=== PATIENT | female | born 1990 | race Caucasian/White ===

== ENCOUNTER 2018-06-08 21:30 | Emergency (ER) | payer OTHER, SELFPAY ==
[2018-06-08 21:37] VITALS: BP 121/77; PULSE 81; RESP 21; TEMP 37; O2SAT 99; BMI 40.6
--- NOTE | 2018-06-08 22:40 | DI.CT.S_ITS ---
PROCEDURE: CT ABDOMEN PELVIS W CON INDICATIONS: severe left upper quad pain TECHNIQUE: After the administration of intravenous contrast, 5 mm thick sections acquired from the diaphragm to the symphysis. 5 mm coronal and sagittal reformats were acquired. For radiation dose reduction, the following was used: automated exposure control, adjustment of mA and/or kV according to patient size. COMPARISON: None. FINDINGS: Image quality: Excellent. ABDOMEN: Lung bases: Lung bases are clear. Heart size is normal. Solid organs: Liver is normal in size and enhancement. Gallbladder appears normal except for the presence of layering very small densely calcified stones within the gallbladder lumen.. Biliary system is non dilated. Pancreas enhances normally. Spleen is normal in size and enhancement. No adrenal nodules. Kidneys demonstrate normal size and enhancement, without hydronephrosis. Peritoneum and bowel: Bowel loops demonstrate normal wall thickness and caliber. No free fluid or air. Nodes and vessels: No retroperitoneal or mesenteric adenopathy by size criteria. Aorta and inferior vena cava are normal in size. Miscellaneous: No ventral hernias. PELVIS: Genitourinary: Bladder wall thickness is normal. Miscellaneous: No inguinal hernias or adenopathy. Bones: No suspicious bony lesions. No vertebral body compression fractures. IMPRESSION: Densely calcified gallstones within the gallbladder lumen. No similar calculus is seen within the bile duct leading to the duodenum. The gallstones present are very small and a component of milk of calcium within the gallbladder lumen may be present. Note: These findings are concordant with the preliminary interpretation. Dictated by: Terry Hanson M.D. on 06/09/2018 at 8:22 Approved by: Terry Hanson M.D. on 06/09/2018 at 8:24
[2018-06-08] MEDS: MORPHINE 2 MG/ML INJ IV (23:02)
--- NOTE | 2018-06-08 23:42 | ED.ABDPAIN ---
HPI - Abdominal Pain General Chief Complaint: Abdominal Pain Stated Complaint: Abd pain Time Seen by Provider: 06/08/18 21:51 Source: patient Mode of arrival: ambulatory Limitations: no limitations History of Present Illness HPI narrative: Patient is a 28-year-old female who presents with left upper quadrant pain. She feels like it is up under her ribs. The sometimes hurts when she breathes and moves. This pain she says is been ongoing for the last 2 days. The patient has gotten significantly worse this evening.She was seen evaluated earlier today at [facility]. She has had recurrent visits. She was diagnosed with chest wall pain. She had blood work done earlier today. According the records her was diagnosed with squamous cell carcinoma of the skin is yesterday. MD complaint: abdominal pain Related Data Previous Rx's Medication Instructions Recorded tramadol 50 mg PO Q6H PRN #10 tab 06/08/18 Allergies Allergy/AdvReac Type Severity Reaction Status Date / Time acetylcysteine Allergy Unknown FACIAL AND Verified 06/08/18 21:37 [From MUCOMYST] THROAT SWELLING cinnamon [CINNAMON] Allergy Unknown Verified 06/08/18 21:37 ciprofloxacin [From CIPRO] Allergy Unknown Verified 06/08/18 21:37 latex [LATEX] Allergy Unknown Verified 06/08/18 21:37 prednisone Allergy Verified 06/08/18 21:37 Review of Systems Review of Systems All systems reviewed & are unremarkable except as noted in HPI and below Constitutional Denies chills, Denies fever(s), Denies lethargy and Denies weakness Cardiovascular Reports as per HPI, Denies palpitations, Denies dyspnea and Denies dyspnea on exertion Respiratory Denies chest congestion, Denies dyspnea and Denies dyspnea on exertion Gastrointestinal Gastrointestinal: Reports as per HPI Genitourinary Denies hematuria, Denies flank pain, Denies urinary incontinence and Denies urinary urgency Musculoskeletal Denies back pain, Denies muscle weakness, Denies numbness and Denies tingling Integumentary/Breasts Denies pruritus, Denies erythema, Denies rash and Denies wounds Neurologic Denies numbness, Denies tingling and Denies weakness Endocrine Denies palpitations [facility] Medical History Asthma (Acute) Social History Smoking Status: Never smoker Exam Initial Vital Signs Initial Vital Signs: Vital Signs Temperature 98.6 F 06/08/18 21:37 Pulse Rate 81 06/08/18 21:37 Respiratory Rate 21 06/08/18 21:37 Blood Pressure 121/77 H 06/08/18 21:37 Pulse Oximetry 99 06/08/18 21:37 GENERAL: Appears in pain crying anxious holding her left upper quadrant HEENT: Head atraumatic,EOMI, pupils reactive, CARDIOVASCULAR: Regular rate and rhythm without murmurs, rubs or gallops. RESPIRATORY: Breath sounds equal bilaterally, no wheezes rales or rhonchi. No paradoxical movement no flail chest ABDOMEN: Soft, tender or left upper quadrant no guarding no rebound says also tender on her lower ribs. : No CVA tenderness EXTREMITIES: Normal range of motion, no clubbing or edema. Neurovascularly intact NEUROLOGICAL: Alert and oriented x4.Normal gait and speech. Cranial nerves II through XII grossly intact. SKIN: Warm, dry, no laceration, no petechiae, no rashes or lesions. Scores PERC Score Age greater than or equal to 50 years: No Heart rate greater than or equal to 100 bpm: No Room Air O2 Sat less than 95%: No Unilateral leg swelling: No Recent trauma or surgery: No Hemoptysis: No Prior PE or DVT: No Hormone Use: No Total PERC Score: 0 Wells' Criteria for PE Clinical signs and symptoms of PE: No PE is #1 Dx or equally likely: No Heart rate > 100: No Immobilization at least 3 days or surg in previous 4 weeks: No History of PE or DVT: No Hemoptysis: No Malignancy w/Treatment within 6 months or palliative: No Wells' PE Score total: 0 Course Orders Ordered: ED Orders 06/08/18 22:40 CT abdomen pelvis w con Stat Discontinued Medications Morphine Sulfate (Morphine) 2 mg IV NOW ONE Stop: 06/08/18 22:42 Last Admin: 06/08/18 23:02 Dose: 2 mg Vital Signs - 8 hr 06/08/18 21:37 06/09/18 00:01 Temperature 98.6 F Pulse Rate 81 63 Respiratory Rate 21 15 Blood Pressure 121/77 H 114/71 Pulse Oximetry 99 99 MDM - Abdominal Pain Lab Data Attestation: I reviewed the patient's lab results. WBC 9.1, hemoglobin 12.6, hematocrit 38.1, his platelets 317, sodium 135, potassium 3.7, chloride 99, carbon dioxide 26, BUN 12, creatinine 0.7, his total bilirubin 0.9, AST 44, ALT 41, alk-phos 62 Point of care testing: Point of Care Testing Test Results Negative Imaging Data CT scan - abdomen: Radiologist's impression: procurement services manager report: Cholelithiasis and or milk of calcium. No biliary dilatation. No appendicitis diverticulitis or mechanical small-bowel obstruction. Other findings above. 2 cm right ovarian functional cyst was sized and a physiologic range. No acute pathology. MDM Narrative Medical decision making narrative: Patient's pain is much better after morphine. Blood work was not repeated as it was done earlier in the day. CT is rather unremarkable. She is low risk for PE and denies any chest pain or shortness of breath. She says that she is straining the morning to be a [employer] she has been helping with residence. She does not remember any specific injury in which she may have injured or hurt herself. Although it is possible. Patient does have cholelithiasis but blood work from earlier does not show any abnormality and she is not tender in her right upper quadrant. This is not clinically correlate. Overall patient feeling much better and ready and able to go home. Discharge Plan Departure Patient Disposition: Home, Self-Care Clinical Impression: Acute costochondritis, Abdominal pain Discharge Date/Time: 06/09/18 00:02 Interventions: ED Discharge Assessment Last Done: 06/09/18 00:01 Instructions: DI for Costochondritis Activity Restrictions/Additional Instructions: *You have been diagnosed with costochondritis, left upper quadrant pain *What to do: CT does reveal gallstones which do not seem to be causing problem at this time. This is likely costochondritis, inflammation of your ribs and cartilage *Continue to take medications as directed -tramadol 1 tablet every 6 hr if needed for severe pain only -please take Tylenol and/or ibuprofen as needed as directed for sdlj-di-jgoporwh pain *Follow up with your primary care provider in 2-3 days *Return to ER if you should have shortness of breath, increasing his pain or any new, worsening or concerning symptoms CONTROLLED SUBSTANCE DISCHARGE (Narcotoic/benzodiazepine/Flexeril/Phenergan) 1. You have been prescribed narcotic medications, it does have acetaminophen/Tylenol/paracetamol in it so do not take extra Tylenol or Tylenol containing products 2. Please understand that we cannot provide further refills of narcotics, benzodiazepines or controlled substances through the ED and her pain management will need to be through your provider. 3. While on these medications you cannot drive or operate heavy machinery. 4. You cannot sign legal documents or perform any duties such as this. 5. As long as you're taking opiate pain medications he should also be taking a stool softener such as Colace, Dulcolax, MiraLAX or prune juice, to help avoid constipation. Prescriptions: New tramadol 50 mg tablet 50 mg PO Q6H PRN (Reason: pain) Qty: 10 RF: 0
[2018-06-09 00:01] VITALS: BP 114/71; PULSE 63; RESP 15; O2SAT 99
== END 2018-06-09 00:02 | disposition home or self-care (01) ==
PROVIDERS: Emergency Provider Emergency Medicine
DX: M94.0 Chondrocostal junction syndrome [Tietze] (principal); R10.9 Unspecified abdominal pain
CPT/HCPCS: 36591; 74177; 81025; 96374; 99282; 99285; J2270; Q9967

== ENCOUNTER 2020-04-20 19:12 | Emergency (ER) | payer OTHER, SELFPAY ==
[2020-04-20 19:21] VITALS: BP 156/98; PULSE 90; RESP 19; TEMP 36.6; O2SAT 100; BMI 44.3
--- NOTE | 2020-04-20 19:28 | DI.RAD.S_ITS ---
PROCEDURE: XR CHEST 1V INDICATIONS: Shortness of breath TECHNIQUE: One view of the chest was acquired. COMPARISON: None. FINDINGS: Surgical changes and devices: None. Lungs and pleura: Lungs are clear. No pleural effusions or pneumothorax. Mediastinum: Mediastinal contours appear normal. Heart size is normal. Bones and chest wall: No suspicious bony lesions. Overlying soft tissues appear unremarkable. IMPRESSION: No acute cardiopulmonary abnormalities or focal airspace disease. Dictated by: Yeison Garner M.D. on 04/20/2020 at 21:38 Approved by: Yeison Garner M.D. on 04/20/2020 at 21:38
[2020-04-20 19:51] LABS: Add Manual Diff / Slide Review NO; Basophils Absolute Auto 0 /uL (0-100); Basophils Percent Auto 0.4 % (0-2); Eosinophils Absolute Auto 100 /uL (0-450); Eosinophils Percent Auto 0.8 % (2-4); Hematocrit 37.7 % (36-46); Hemoglobin 12.4 g/dL (12.0-16.0); Lymphocytes Absolute Auto 4300 /uL (1100-4500); Lymphocytes Percent Auto 44.6 % (25-40); Mean Corpuscular HGB Conc 32.9 % (30-36); Mean Corpuscular Hemoglobin 24.9 PG (26-34); Mean Corpuscular Volume 75.6 fL (80-100); Monocytes Absolute Auto 700 /uL (0-900); Monocytes Percent Auto 7.1 % (3-14); Neutrophils Absolute Auto 4500 /uL (1500-7000); Neutrophils Percent Auto 47.1 % (50-75); Platelet Count 372 X10^3/uL (150-400); Red Blood Cell Count 4.99 X10^6/uL (4.0-5.2); Red Cell Distribution Width 15.4 % (11.6-14.8); White Blood Cell Count 9.7 X10^3/uL (4.5-11.0)
[2020-04-20 19:55] LABS: Appearance Urine UA CLEAR; Bilirubin Urine UA NEGATIVE (NEGATIVE); Color Urine UA YELLOW; Glucose Urine UA NEGATIVE (Negative); Ketones Urine UA NEGATIVE (NEGATIVE); Leukocyte Esterase Urine UA NEGATIVE (NEGATIVE); Nitrite Urine UA NEGATIVE (Negative); Occult Blood Urine UA 1+ (Negative); Protein Urine UA NEGATIVE (Negative); Specific Gravity Urine UA 1.025 (1.000-1.035); Urobilinogen Urine UA 0.2 E.U./dL (0.2)
[2020-04-20 19:58] LABS: Pregnancy Test Urine Negative (Negative)
[2020-04-20 20:03] LABS: pH Urine UA 5.5 (4.5-8.0)
[2020-04-20 20:06] LABS: Acetaminophen < 10 ug/mL (10-30); Alanine Aminotransferase 32 IU/L (<35); Albumin 4.6 g/dL (3.5-5.0); Albumin Globulin Ratio 1.4 (1.0-2.8); Alkaline Phosphatase 80 U/L (38-126); Amorphous Sediment Urine 1+; Aspartate Aminotransferase 26 IU/L (14-36); BUN Creatinine Ratio 12.9 (6-22); Bacteria Urine Occasional (0-1); Bilirubin Total 0.4 mg/dL (0.2-1.3); Blood Urea Nitrogen 8 mg/dL (7-17); Calcium 9.2 mg/dL (8.4-10.2); Carbon Dioxide 27 mmol/L (22-32); Chloride 102 mmol/L (98-107); Culture Indicated Urine Cult Not Indicated; Estimated Glomerular Filt Rate > 60.0 mL/min (>60); Ethanol (ETOH) < 10 mg/dL; Globulin 3.2 g/dL (1.7-4.1); Glucose 87 mg/dL (70-100); HEMOLYSIS < 15 (0-50); Lipase 21 U/L (23-300); Mucus Urine 1+ (Negative); Potassium 3.7 mmol/L (3.4-5.1); RBC Urine 0-1/HPF (0-5/HPF); Salicylate < 1.0 mg/dL (<20); Sodium 140 mmol/L (137-145); Squamous Epithelial Cell Urine 1-5 /HPF (0-5/HPF); Total Protein 7.8 g/dL (6.3-8.2); WBC Urine 1-5/HPF (0-5/HPF)
[2020-04-20 20:08] LABS: UR Morphine/Opiate cutoff 300 Negative (Negative); Ur Creatinine Normal (Normal); Ur Specific Gravity Normal (Normal); Urine Amphetamines Negative (Negative); Urine Barbiturates Negative (Negative); Urine Benzodiazepines Negative (Negative); Urine Cocaine Negative (Negative); Urine MDMA Negative (Negative); Urine Methadone Negative (Negative); Urine Methamphetamines Negative (Negative); Urine Oxycodone Negative (Negative); Urine Phencyclidine Negative (Negative); Urine Tetrahydrocannabinol Negative (Negative); Urine Tricyclic Antidepressant Negative (Negative); Urine pH Normal (Normal)
--- NOTE | 2020-04-20 20:38 | ED_ITS ---
HPI - Anxiety General Chief Complaint: Anxiety Stated Complaint: cant breath Time Seen by Provider: 04/20/20 19:26 Source: patient Mode of arrival: Ambulatory Limitations: no limitations History of Present Illness HPI narrative: Patient is a 30-year-old female here for evaluation of shortness of breath and an anxiety attack. Patient states that she has a history of anxiety. Has had Valium in the past. Has seen a counselor off and on throughout her life for these issues. She states that over the past several weeks/months she has had increasing problems with anxiety and depression. 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 This provides her quite a bit of stress. Her is also returning in 2 weeks. She states that several weeks ago she had very intrusive thoughts of suicide. She states she has fleeting thoughts of suicide now. She has 2 kids at home. She states that she has no planned would not hurt herself but does think about it occasionally she recently received a call back from a therapist to she has been trying to get in touch with to get an appointment. She has also used other services. She states that her shortness of breath and chest pain is related to her anxiety. Related Data Previous Rx's Medication Instructions Recorded tramadol 50 mg PO Q6H PRN #10 tab 06/08/18 lorazepam [Ativan] 0.5 mg PO BID PRN #10 tab 04/20/20 Allergies Allergy/AdvReac Type Severity Reaction Status Date / Time acetylcysteine Allergy Unknown FACIAL AND Verified 06/08/18 21:37 [From MUCOMYST] THROAT SWELLING cinnamon [CINNAMON] Allergy Unknown Verified 06/08/18 21:37 ciprofloxacin [From CIPRO] Allergy Unknown Verified 06/08/18 21:37 latex [LATEX] Allergy Unknown Verified 06/08/18 21:37 prednisone Allergy Verified 06/08/18 21:37 Review of Systems Constitutional Constitutional: Denies fever(s) and Denies headache(s) ENT Ears, Nose, Mouth, and Throat: Denies headache(s) Cardiovascular Cardiovascular: Reports chest pain, Denies irregular heart rhythm, Reports lightheadedness and Reports dyspnea Respiratory Respiratory: Denies cough and Reports dyspnea Gastrointestinal Gastrointestinal: Denies abdominal pain, Denies change in bowel habits, Denies diarrhea and Denies nausea Genitourinary Genitourinary: Denies dysuria Genitourinary: Denies dysuria Musculoskeletal Musculoskeletal: Denies myalgias Integumentary/Breasts Skin/Breast: Denies rash Neurologic Neurologic: Reports behavioral changes and Denies headache(s) Psychiatric Psychiatric: Reports anxiety, Reports behavioral changes, Reports depression, Reports hopelessness, Reports mood swings, Reports panic attacks and Denies homicidal ideation Hematologic/Lymphatic Hematologic/Lymphatic: Denies easy bleeding and Denies easy bruising Allergic/Immunologic Allergic/Immunologic: Denies urticaria Patient History Medical History Asthma (Inactive) Asthma (Acute) Bronchitis (Inactive) Left arm weakness (Inactive) Neuropathy (Inactive) Paresthesia of arm (Inactive) Subchorionic hemorrhage in first trimester (Inactive) Social History Smoking Status: Never smoker Smoking Status: Never smoker alcohol intake frequency: a few times a week Substance Use Type: marijuana Exam Initial Vital Signs Initial Vital Signs: Vital Signs Temperature 97.8 F 04/20/20 19:21 Pulse Rate 90 04/20/20 19:21 Respiratory Rate 19 04/20/20 19:21 Blood Pressure 156/98 H 04/20/20 19:21 Pulse Oximetry 100 04/20/20 19:21 Const General: cooperative and comfortable Limitations: mental status not altered HENMT Head: normal to inspection and normocephalic Resp Effort & Inspection: normal respiratory effort Cardio Rate: regular rate Rhythm: regular rhythm GI Inspection: non-distended Skin Lesions: no lesions Rashes: no rashes Neuro General: patient alert and patient awake Cognition: normal cognition Speech: speech normal Gait: normal gait Extrem General: normal to inspection Psych Appearance: grossly normal and well kempt Speech and Movement: speech clear Mood: anxious mood and No angry Affect: sad and anxious affect Attitude: cooperative Thought Process: normal Thought Content: normal and suicidality Judgment: judgment good Scores GCS [place] coma scale eye opening: Spontaneous [place] coma scale verbal response: Orientated [place] coma scale motor response: Obey commands [place] coma scale total score: 15 Course Orders Ordered: ED Orders 06/26/20 19:21 EKG-12 Lead Stat 04/20/20 19:28 XR chest 1V Stat 04/20/20 19:40 Acetaminophen Stat Complete Blood Count AUTO DIFF Stat Comprehensive Metabolic Panel Stat Ethanol (ETOH) Stat Lipase Stat Test Urine Stat Salicylate Stat Thyroid Stimulating Hormone Stat Urinalysis and Microscopic Stat Urine Drug Screen, Rapid Stat Vital Signs Vital signs: Vital Signs - 8 hr 04/20/20 21:01 Pulse Rate 85 Respiratory Rate 18 Blood Pressure [Left Arm] 133/73 Pulse Oximetry 100 MDM - Anxiety Lab Data Attestation: I reviewed the patient's lab results. Result diagrams: 04/20/20 19:40 04/20/20 19:40 Labs: Lab Results 04/20/20 04/20/20 04/20/20 Range/Units 19:40 19:40 19:40 WBC 9.7 (4.5-11.0) X10^3/uL RBC 4.99 (4.0-5.2) X10^6/uL Hgb 12.4 (12.0-16.0) g/dL Hct 37.7 (36-46) % MCV 75.6 L (80-100) fL MCH 24.9 L (26-34) PG MCHC 32.9 (30-36) % RDW 15.4 H (11.6-14.8) % Plt Count 372 (150-400) X10^3/uL Neut % (Auto) 47.1 L (50-75) % Lymph % (Auto) 44.6 H (25-40) % [place] % (Auto) 7.1 (3-14) % Eos % (Auto) 0.8 L (2-4) % Baso % (Auto) 0.4 (0-2) % Neut # (Auto) 4500 (3761-1297) /uL Lymph # (Auto) 4300 (1756-2707) /uL [place] # (Auto) 700 (0-900) /uL Eos # (Auto) 100 (0-450) /uL Baso # (Auto) 0 (0-100) /uL Sodium 140 (137-145) mmol/L Potassium 3.7 (3.4-5.1) mmol/L Chloride 102 (98-107) mmol/L Carbon Dioxide 27 (22-32) mmol/L BUN 8 (7-17) mg/dL Creatinine 0.62 (0.52-1.04) mg/dL Estimated GFR > 60.0 (>60) mL/min BUN/Creatinine Ratio 12.9 (6-22) Glucose 87 (70-100) mg/dL Calcium 9.2 (8.4-10.2) mg/dL Total Bilirubin 0.4 (0.2-1.3) mg/dL AST 26 (14-36) IU/L ALT 32 (<35) IU/L Alkaline Phosphatase 80 (38-126) U/L Total Protein 7.8 (6.3-8.2) g/dL Albumin 4.6 (3.5-5.0) g/dL Globulin 3.2 (1.7-4.1) g/dL Albumin/Globulin Ratio 1.4 (1.0-2.8) Lipase 21 L (23-300) U/L TSH (0.47-4.68) uIU/mL Urine Color Urine Appearance Urine pH (4.5-8.0) Ur Specific [place] (1.000-1.035) Urine Protein (Negative) Urine Glucose (UA) (Negative) g/dL Urine Ketones (NEGATIVE) Urine Occult Blood (Negative) Urine Nitrate (Negative) Urine Bilirubin (NEGATIVE) Urine Urobilinogen (0.2) E.U./dL Ur Leukocyte Esterase (NEGATIVE) Urine RBC (0-5/HPF) Urine WBC (0-5/HPF) Ur Squamous Epith Cells (0-5/HPF) Amorphous Sediment Urine Bacteria (None) Urine Mucus (Negative) Ur Culture Indicated? Urine Test Negative (Negative) Salicylates < 1.0 (<20) mg/dL U Opiates 300ng/mL cut (Negative) Ur Oxycodone Screen (Negative) Urine Methadone Screen (Negative) Acetaminophen < 10 L (10-30) ug/mL Ur Barbiturates Screen (Negative) U Tricyclic Antidepress (Negative) Ur Phencyclidine Scrn (Negative) Ur Amphetamines Screen (Negative) U Methamphetamines Scrn (Negative) Ur MDMA Scrn (Ecstasy) (Negative) U Benzodiazepines Scrn (Negative) Urine Cocaine Screen (Negative) U Marijuana (THC) Screen (Negative) Ethyl Alcohol < 10 ( - 10) mg/dL 06/26/20 06/26/20 06/26/20 Range/Units 19:40 19:40 19:40 WBC (4.5-11.0) X10^3/uL RBC (4.0-5.2) X10^6/uL Hgb (12.0-16.0) g/dL Hct (36-46) % MCV (80-100) fL MCH (26-34) PG MCHC (30-36) % RDW (11.6-14.8) % Plt Count (150-400) X10^3/uL Neut % (Auto) (50-75) % Lymph % (Auto) (25-40) % [place] % (Auto) (3-14) % Eos % (Auto) (2-4) % Baso % (Auto) (0-2) % Neut # (Auto) (5382-1067) /uL Lymph # (Auto) (2206-8757) /uL [place] # (Auto) (0-900) /uL Eos # (Auto) (0-450) /uL Baso # (Auto) (0-100) /uL Sodium (137-145) mmol/L Potassium (3.4-5.1) mmol/L Chloride (98-107) mmol/L Carbon Dioxide (22-32) mmol/L BUN (7-17) mg/dL Creatinine (0.52-1.04) mg/dL Estimated GFR (>60) mL/min BUN/Creatinine Ratio (6-22) Glucose (70-100) mg/dL Calcium (8.4-10.2) mg/dL Total Bilirubin (0.2-1.3) mg/dL AST (14-36) IU/L ALT (<35) IU/L Alkaline Phosphatase (38-126) U/L Total Protein (6.3-8.2) g/dL Albumin (3.5-5.0) g/dL Globulin (1.7-4.1) g/dL Albumin/Globulin Ratio (1.0-2.8) Lipase (23-300) U/L TSH 1.85 (0.47-4.68) uIU/mL Urine Color Yellow Urine Appearance Clear Urine pH 5.5 (4.5-8.0) Ur Specific [place] 1.025 (1.000-1.035) Urine Protein Negative (Negative) Urine Glucose (UA) Negative (Negative) g/dL Urine Ketones Negative (NEGATIVE) Urine Occult Blood 1+ H (Negative) Urine Nitrate Negative (Negative) Urine Bilirubin Negative (NEGATIVE) Urine Urobilinogen 0.2 (0.2) E.U./dL Ur Leukocyte Esterase Negative (NEGATIVE) Urine RBC 0-1/hpf (0-5/HPF) Urine WBC 1-5/hpf (0-5/HPF) Ur Squamous Epith Cells 1-5 /hpf (0-5/HPF) Amorphous Sediment 1+ Urine Bacteria Occasional (0-1) (None) Urine Mucus 1+ H (Negative) Ur Culture Indicated? Cult not indicated Urine Test (Negative) Salicylates (<20) mg/dL U Opiates 300ng/mL cut Negative (Negative) Ur Oxycodone Screen Negative (Negative) Urine Methadone Screen Negative (Negative) Acetaminophen (10-30) ug/mL Ur Barbiturates Screen Negative (Negative) U Tricyclic Antidepress Negative (Negative) Ur Phencyclidine Scrn Negative (Negative) Ur Amphetamines Screen Negative (Negative) U Methamphetamines Scrn Negative (Negative) Ur MDMA Scrn (Ecstasy) Negative (Negative) U Benzodiazepines Scrn Negative (Negative) Urine Cocaine Screen Negative (Negative) U Marijuana (THC) Screen Negative (Negative) Ethyl Alcohol ( - 10) mg/dL Imaging Data Chest x-ray: Radiologist's Impression: [place] [address] XRay Report Signed Patient: Maria Ines Way EMR#: [id number] : 1990Acct:[id number] Age/Sex: 30 / FDate of Service: 04/20/20 Loc: ED Accession Number: [id number] Procedure: XR chest 1V Ordering Provider: Tremayne aXvier D.O. PROCEDURE: XR CHEST 1V INDICATIONS: Shortness of breath TECHNIQUE: One view of the chest was acquired. COMPARISON: None. FINDINGS: Surgical changes and devices: None. Lungs and pleura: Lungs are clear. No pleural effusions or pneumothorax. Mediastinum: Mediastinal contours appear normal. Heart size is normal. Bones and chest wall: No suspicious bony lesions. Overlying soft tissues appear unremarkable. IMPRESSION: No acute cardiopulmonary abnormalities or focal airspace disease. Dictated by: Yeison Garner M.D. on 04/20/2020 at 21:38 Approved by: Yeison Garner M.D. on 04/20/2020 at 21:38 ECG Data Attestation: I personally reviewed and interpreted this ECG as follows: Prior ECG tracings: not available for review Interpretation: Sinus rhythm Ventricular rate 81 Normal axis Normal QRS Normal QTC No ST T wave changes MDM Narrative Medical decision making narrative: Suspect patient's symptoms today are not cardiopulmonary in origin. I do suspect that this is an anxiety issue. Had a long discussion with her regarding symptoms. It appears that her anxiety is related to the fact that her is deployed, the fact that he is coming back in 2 weeks. And also the COVID-19 crisis. 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 She states she understands the reason for this but it still makes her very sad. Couple weeks ago patient did have very intrusive thoughts of hurting herself however she reports that she had no plan at that time. She states that currently she gets fleeting thoughts of hurting herself however does feel safe at home. We did discuss her anxiety. Will send her home with some anxiety medications. Patient feels like she does not need admitted to the hospital. Patient is alert oriented x3 my opinion has capacity to make decisions. GCS of 15. Feel the patient does not meet criteria for an involuntary admission. Offered to contact [facility] to see if I can get a very short term follow-up however the patient declined this. We did discuss the options that would she has with the and she expressed understanding of this. Patient stated that she felt safe ago going home. She reported that she would contact someone a return to emergency department if she had any more thoughts of hurting herself. Discharge Plan Departure Patient Disposition: Home Clinical Impression: Acute anxiety Discharge Date/Time: 04/20/20 21:20 Instructions: Anxiety and Panic Attacks (Alternative Therapy) Activity Restrictions/Additional Instructions: The emergency department is open 24 hours a day and 7 days a week and I encourage you to return if you have any thoughts of hurting herself or others. Take all of your medications as directed. I do recommend that he reach out to the resources that the [facility] has to offer. Take all the medications as directed. Prescriptions: New lorazepam [Ativan] 0.5 mg tablet 0.5 mg PO BID PRN (Reason: anxiety) Qty: 10 RF: 0 No Action tramadol 50 mg tablet 50 mg PO Q6H PRN (Reason: pain) Qty: 10 RF: 0
[2020-04-20 20:51] LABS: Thyroid Stimulating Hormone 1.85 uIU/mL (0.47-4.68)
[2020-04-20 21:01] VITALS: BP 133/73; PULSE 85; RESP 18; O2SAT 100
--- NOTE | 2020-04-20 21:19 | PC.NURSE ---
PT states anxiety, CP and difficulty breathing. Pt states is on [employer] deployment has been on [place] and has had anxiety related to his deployment and feeling isolated during the pandemic. Pt denies SI and homicidal ideation. States she has been feeling overwhelmed with husbands deployment and has a history of anxiety and has used valium in the past. Pt has 2 small children at home and appears hopeful that is due to return in 13 days and states just need to get through these 13 days and he is the stability of our family. Pt given resources for SI and encouraged to reach out to [place] for family support resources or return to ER if having thoughts of SI.
== END 2020-04-20 21:20 | disposition home or self-care (01) ==
PROVIDERS: Emergency Provider Emergency Medicine
DX: F41.0 Panic disorder [episodic paroxysmal anxiety] (principal); R06.02 Shortness of breath
CPT/HCPCS: 36415; 71045; 80053; 80305; 80320; 80329; 81001; 81025; 83690; 84443; 85025; 93005; 99284; G0480

== ENCOUNTER → 2021-11-21 09:12 | Outpatient (CLI) | payer OTHER, SELFPAY ==
--- NOTE | 2021-11-21 | DI.RAD.S_ITS ---
PROCEDURE: FL HIP INJECTION MR/CT LT INDICATIONS: PAIN IN LEFT HIP TECHNIQUE: The indications, alternatives, benefits, risks, and complications of the procedure were explained to the patient. Written informed consent was obtained and placed in the chart. The hip was examined fluoroscopically with the legs fixed in slight internal rotation, and a site for needle placement chosen for entry into the hip joint from an anterior approach. Care was taken to locate the common femoral artery and vein beforehand. The skin was prepped and draped in a sterile fashion, and 1% Lidocaine infiltrated from skin down to joint capsule. A spinal needle was inserted into the joint, and a small amount of iodinated contrast media injected to confirm intra-articular placement of the needle tip. This was followed by approximately 10 mL dilute solution of a gadolinium containing MR contrast agent. The needle was removed and a dressing was applied. The patient was given postprocedural instructions and sent to the MR suite for imaging. COMPARISON: [facility], , MR HIP LT W CON, 11/21/2021, 9:43. [facility], RF, HIP INJECTION FOR MR/CT, 11/02/2015, 14:37. FINDINGS: A single fluoroscopic spot image demonstrates intra-articular location of injected iodinated contrast. IMPRESSION: Successful fluoroscopically guided administration of dilute Gadolinium solution into the hip joint for MR arthrogram. Dictated by: Yeison Garner M.D. on 11/21/2021 at 14:09 Approved by: Yeison Garner M.D. on 11/21/2021 at 14:11
--- NOTE | 2021-11-21 | DI.MRI.S_ITS ---
PROCEDURE: MR HIP LT W CON INDICATIONS: PAIN IN LEFT HIP TECHNIQUE: After the administration of 10 mL of dilute intra-articular Gadolinium contrast, coronal STIR of the bony pelvis; coronal and oblique axial T1 spin echo with fat saturation, axial T2 fast spin echo with fat saturation, sagittal T1 spin echo with and without fat saturation of the involved hip. COMPARISON: [facility], MR, HIP WITH CONTRAST, 11/02/2015, 14:49. FINDINGS: Image quality: Excellent. Bones and joints: Left worse than right bilateral hip joint osteoarthritic changes are seen with joint space narrowing, subchondral sclerosis and prominent lateral marginal osteophyte formation which can be seen associated with pincer type femoral acetabular impingement. No marrow edema. No intraosseous lesions or fractures. No avascular necrosis of the femoral head. The visualized lower lumbar spine appears normally aligned. The ligamental, neck, and labral plicae appear normal where visualized. Tendons and ligaments: Distal left gluteus medius and minimus tendinosis and low-grade intrasubstance partial-thickness tear at their greater trochanteric insertion is seen, without associated muscle atrophy. The nearby proximal iliotibial band also appears intact. The iliopsoas tendon appears intact, without adjacent bursal fluid collections or evidence for impingement syndrome. The origin of the hamstring tendon is intact at the ischial tuberosity, as well as the associated sacrotuberous ligament. The straight and reflected heads of the rectus femoris muscle origin appear intact, as well as the conjoint tendon. The ligamentum teres appears intact where visualized. Labrum and cartilage: Thinning of articulating cartilages in right femoral head is seen. Subtle contour irregularity, signal abnormality and contrast extension in superior anterior left hip labrum is seen suggestive of focal superior anterior left hip labral tear. No paralabral cysts. The alpha angle of the femur is within normal limits at less than 55 degrees. Soft tissues: Visualized muscles demonstrate normal bulk and internal signal. Quadratus femoris muscle demonstrates no internal edema to suggest ischiofemoral impingement. The proximal sciatic neurovascular bundle appears normal adjacent to the hamstring tendons. No free pelvic fluid. Bladder wall thickness is normal. Genitourinary structures and bowel loops appear normal where visualized. Multiple small right ovarian cysts are noted. IMPRESSION: 1. Left worse than right bilateral hip joint osteoarthritis as described above. Prominent lateral marginal osteophyte formation in left hip which can be seen associated with pincer type femoral acetabular impingement. No fracture or dislocation. No evidence of avascular necrosis of femoral head. 2. Suggestion of superior anterior left hip labral tear. 3. Mild distal left gluteus medius and minimus tendinosis and low-grade intrasubstance partial-thickness tear at their insertions on greater trochanter. No other muscle or tendon signal abnormality. Dictated by: Renard Coffey M.D. on 11/21/2021 at 11:13 Approved by: Renard Coffey M.D. on 11/21/2021 at 12:34
== END ==
PROVIDERS: PCP Family Medicine; Referring Provider Family Medicine; Visit Provider Family Medicine
DX: S76.812A Strain of other specified muscles, fascia and tendons at thigh level, left thigh, initial encounter (principal); M16.0 Bilateral primary osteoarthritis of hip; M25.552 Pain in left hip
CPT/HCPCS: 27093; 73722; 77002

== ENCOUNTER → 2022-02-03 11:04 | Outpatient (CLI) | payer OTHER, SELFPAY ==
--- NOTE | 2022-02-03 11:07 | DI.RAD.S_ITS ---
PROCEDURE: XR CERVICAL SPINE 4V OR 5V INDICATIONS: NECK PAIN TECHNIQUE: 5 views of the cervical spine acquired. COMPARISON: None. FINDINGS: Bones: No fractures or dislocations to the T1 level. Oblique images demonstrate no bony foraminal stenoses. Soft tissues: No prevertebral soft tissue swelling. IMPRESSION: No evidence acute bony abnormality of the cervical spine. No significant spondylitic change. If clinical suspicion and/or symptoms persist, further assessment with repeat plain films, or advanced imaging (e.g., CT, MRI, or bone scan) may be helpful for further assessment. Dictated by: Juan Pierce M.D. on 02/03/2022 at 12:40 Approved by: Juan Pierce M.D. on 02/03/2022 at 12:41
== END ==
PROVIDERS: PCP Family Medicine; Referring Provider Physical Medicine & Rehabilitation; Visit Provider Physical Medicine & Rehabilitation
DX: M50.10 Cervical disc disorder with radiculopathy, unspecified cervical region (principal); R29.898 Other symptoms and signs involving the musculoskeletal system; M24.152 Other articular cartilage disorders, left hip
CPT/HCPCS: 72050; 99214

== ENCOUNTER → 2022-02-11 12:00 | Outpatient (CLI) | payer OTHER, SELFPAY ==
[2022-02-11 13:11] LABS: COVID19 -Nasal RAPID Negative (Negative)
== END ==
PROVIDERS: PCP Family Medicine; Visit Provider Physical Medicine & Rehabilitation
DX: Z20.822 Contact with and (suspected) exposure to COVID-19 (principal)
CPT/HCPCS: 87635; C9803

== ENCOUNTER 2022-02-13 09:08 | Outpatient (CLI) | payer OTHER, SELFPAY ==
[2022-02-13] VITALS (10 sets, daily range): BP systolic 94–140; BP diastolic 54–70; PULSE 56–75; RESP 10–20; TEMP 36.4; O2SAT 96–100
--- NOTE | 2022-02-13 09:45 | DI.RAD.S_ITS ---
PROCEDURE: PAIN C/T INTERLAMINAR INJECT INDICATIONS: SPINAL STENOSIS COMPARISON: [facility], CR, XR CERVICAL SPINE 4V OR 5V, 02/03/2022, 11:12. FINDINGS: Fluoroscopic spot filming was performed to verify placement of a spinal needle at the C5-C6 level, as labeled on the films. Appropriate location of the needle tip was confirmed by injection of iodinated contrast. IMPRESSION: No significant intraprocedural abnormality. Dictated by: Loki Alaniz M.D. on 02/13/2022 at 11:19 Approved by: Loki Alaniz M.D. on 02/13/2022 at 11:19
[2022-02-13] MEDS: MIDAZOLAM 2 MG/2 ML VIAL IV (10:08)
[2022-02-13] MEDS: IOPAMIDOL 15 ML VIAL 3 ML INJ (10:25)
[2022-02-13] MEDS: DEXAMETHASONE 10 MG/ML VIAL 30 MG INJ (10:26)
--- NOTE | 2022-02-13 10:30 | PM.PROC.IR.1 ---
Date/Time/Diagnoses Date of procedure: 02/13/22 Time of procedure: 10:30 Pre-procedure diagnosis: 1. CERVICAL STENOSIS, 2. CERVICAL HNP WITH UPPER EXTREMITY RADICULAR FEATURES Post-procedure diagnosis: same Procedure Notes Procedure: 1. FLUORSCOPICALLY GUIDED CONTRAST CONTROLLED INTERLAMINAR EPIDURAL STEROID INJECTION - C5/6 TL DAVY Indications: Maria Ines is referred by Dr. Murphy for treatment of Cervical HNP with Upper Extremity Paresthesias. Physician: Gilles Mccray Total Fluoroscopy time (seconds): 33 Total sedation minutes: 16 Complications: none Procedure in detail & Post-procedure care: FINDINGS Cervical Stenosis due to disc deterioration and nerve root irritation and nerve root irritation DESCRIPTION OF PROCEDURE Fluoroscopically guided, contrast-controlled C6/7 translaminar epidural steroid injection with conscious sedation. Following review of allergy and review of potential side effects and complications, including, but not necessarily limited to, infection, allergic reaction, local tissue breakdown, temporary as well as permanent nerve injury, stroke, paralysis, and possible , the patient indicated that patient understood and agreed to proceed. An informed consent document was signed by the patient, witnessed by a nurse, and placed in the patient's chart. Additionally, other treatment options including modalities, medications, and physical therapy were reviewed with the patient. After review of previous anaesthesic history and IV conscious sedation the patient was deemed safe to proceed with today?s procedure with IV conscious sedation as ASA class II designation. Safety time-out was performed to confirm patient ID, procedure to be performed and site of procedure. IV sedation was accomplished with a combination of 3mg of Versed administered by the RN after DO order, titrated to patient comfort during the course of the procedure while the patient remained responsive to all verbal commands. In the prone position, following sterile prep and drape of the cervical region, the C6/7 translaminar space was identified fluoroscopically. The skin was anesthetized via a 25-gauge 1.5-inch needle with 1% lidocaine solution. At this point, a 25-gauge, 2.5-inch short bevel spinal needle was atraumatically introduced and advanced under fluoroscopic guidance into epidural space at the C6/7 translaminar space. Depth was confirmed on lateral view. Radiological data, including multiple fluoroscopic views of the cervical spine, reveal a spinal needle at the C6/7 translaminar space. Lateral views then show placement of the needle in the epidural space. Subsequent views show contrast material flowing superiorly and inferiorly in the epidural space. DSA fluoroscopy with live contrast injection, once again, confirmed no vascular or intrathecal uptake. At this point, using loss of resistance technique with saline and air, the epidural space was entered. Following negative aspiration, injection of approximately 1.5 cc of Isovue-200 with live fluoroscopy in the AP view confirmed epidural flow in the epidural space without vascular or intrathecal uptake observed. Subsequently, a test dose of 1 cc of 1% lidocaine solution was injected and patient was observed for two minutes without signs or symptoms of complications, including abdominal pain, shortness of breath, bilateral upper or lower extremity weakness, nausea and vomiting, prior to steroid injection. At this point, 3cc or 30mg of dexamethasone was then injected without incident. The patient tolerated the procedure well without signs or symptoms of complications prior to being transferred to the recovery area for further monitoring, The patient was then transferred to the recovery area where they were observed for an appropriate period of time after the injection. The patient reported a VAS score of 6 prior to the procedure and a post-procedure VAS of 0. POST OP INSTRUCTIONS The patient was provided a Pain Log to continue to record their response to the target-specific procedure prior to follow-up visit with the referring provider. Additionally, specific post-injection care instructions and a contact number to our office were provided if concerns arise regarding possible complications associated with the procedure are suspected.
== END 2022-02-13 10:47 | disposition home or self-care (01) ==
LOC: RAD 09:10
PROVIDERS: PCP Family Medicine; Referring Provider Physical Medicine & Rehabilitation; Visit Provider Physical Medicine & Rehabilitation
DX: M48.02 Spinal stenosis, cervical region (principal); M50.122 Cervical disc disorder at C5-C6 level with radiculopathy
CPT/HCPCS: 62321; 99152; J1100; J2250

== ENCOUNTER → 2022-06-17 08:39 | Outpatient (CLI) | payer OTHER, SELFPAY ==
[2022-06-17 11:33] LABS: COVID19 -Nasal RAPID Negative (Negative)
== END ==
PROVIDERS: PCP Family Medicine; Visit Provider Physical Medicine & Rehabilitation
DX: Z20.822 Contact with and (suspected) exposure to COVID-19 (principal)
CPT/HCPCS: 87635; C9803

== ENCOUNTER 2022-06-19 08:53 | Outpatient (CLI) | payer OTHER, SELFPAY ==
[2022-06-19] VITALS (9 sets, daily range): BP systolic 110–130; BP diastolic 55–74; PULSE 66–84; RESP 10–20; TEMP 36.5; O2SAT 99–100
--- NOTE | 2022-06-19 08:55 | DI.RAD.S_ITS ---
PROCEDURE: PAIN C/T INTERLAMINAR INJECT INDICATIONS: SPINAL STENOSIS COMPARISON: [facility], , PAIN C/T INTERLAMINAR INJECT, 02/13/2022, 10:13. FINDINGS: Fluoroscopic spot filming was performed to verify placement of a spinal needle at the C5-C6 level, as labeled on the films. Appropriate location of the needle tip was confirmed by injection of iodinated contrast. IMPRESSION: No significant intraprocedural abnormality. Dictated by: Loki Alaniz M.D. on 06/19/2022 at 13:55 Approved by: Loki Alaniz M.D. on 06/19/2022 at 13:55
[2022-06-19] MEDS: MIDAZOLAM 2 MG/2 ML VIAL 4 MG IV (09:45)
[2022-06-19] MEDS: DEXAMETHASONE 10 MG/ML VIAL 30 MG INJ (09:52)
[2022-06-19] MEDS: IOPAMIDOL 15 ML VIAL 3 ML INJ (09:52)
[2022-06-19] MEDS: BUPIVACAINE 0.25% (PF) VIAL 2 ML INJ (09:52)
--- NOTE | 2022-06-19 10:08 | PM.PROC.IR.1 ---
Date/Time/Diagnoses Date of procedure: 06/19/22 Time of procedure: 10:09 Pre-procedure diagnosis: 1. CERVICAL STENOSIS, 2. CERVICAL HNP WITH UPPER EXTREMITY RADICULAR FEATURES Post-procedure diagnosis: same Procedure Notes Procedure: 1. FLUORSCOPICALLY GUIDED CONTRAST CONTROLLED INTERLAMINAR EPIDURAL STEROID INJECTION - C5/6 TL DAVY Indications: Maria Ines is referred by Dr. Murphy for treatment of Cervical HNP with Upper Extremity Paresthesias. Physician: Gilles Mccray Total Fluoroscopy time (seconds): 21 Total sedation minutes: 18 Complications: none Procedure in detail & Post-procedure care: FINDINGS Cervical Stenosis due to disc deterioration and nerve root irritation and nerve root irritation DESCRIPTION OF PROCEDURE Fluoroscopically guided, contrast-controlled C5/6 translaminar epidural steroid injection with conscious sedation. Following review of allergy and review of potential side effects and complications, including, but not necessarily limited to, infection, allergic reaction, local tissue breakdown, temporary as well as permanent nerve injury, stroke, paralysis, and possible , the patient indicated that patient understood and agreed to proceed. An informed consent document was signed by the patient, witnessed by a nurse, and placed in the patient's chart. Additionally, other treatment options including modalities, medications, and physical therapy were reviewed with the patient. After review of previous anaesthesic history and IV conscious sedation the patient was deemed safe to proceed with today?s procedure with IV conscious sedation as ASA class II designation. Safety time-out was performed to confirm patient ID, procedure to be performed and site of procedure. IV sedation was accomplished with a combination of 4mg of Versed administered by the RN after DO order, titrated to patient comfort during the course of the procedure while the patient remained responsive to all verbal commands. In the prone position, following sterile prep and drape of the cervical region, the C5/6 translaminar space was identified fluoroscopically. The skin was anesthetized via a 25-gauge 1.5-inch needle with 1% lidocaine solution. At this point, a 25-gauge, 2.5-inch short bevel spinal needle was atraumatically introduced and advanced under fluoroscopic guidance into epidural space at the C5/6 translaminar space. Depth was confirmed on lateral view. Radiological data, including multiple fluoroscopic views of the cervical spine, reveal a spinal needle at the C5/6 translaminar space. Lateral views then show placement of the needle in the epidural space. Subsequent views show contrast material flowing superiorly and inferiorly in the epidural space. DSA fluoroscopy with live contrast injection, once again, confirmed no vascular or intrathecal uptake. At this point, using loss of resistance technique with saline and air, the epidural space was entered. Following negative aspiration, injection of approximately 1.5 cc of Isovue-200 with live fluoroscopy in the AP view confirmed epidural flow in the epidural space without vascular or intrathecal uptake observed. Subsequently, a test dose of 1cc of 1% lidocaine solution was injected and patient was observed for two minutes without signs or symptoms of complications, including abdominal pain, shortness of breath, bilateral upper or lower extremity weakness, nausea and vomiting, prior to steroid injection. At this point, 3cc or 30mg of dexamethasone was then injected without incident. The patient tolerated the procedure well without signs or symptoms of complications prior to being transferred to the recovery area for further monitoring, The patient was then transferred to the recovery area where they were observed for an appropriate period of time after the injection. The patient reported a VAS score of 6 prior to the procedure and a post-procedure VAS of 0. POST OP INSTRUCTIONS The patient was provided a Pain Log to continue to record their response to the target-specific procedure prior to follow-up visit with the referring provider. Additionally, specific post-injection care instructions and a contact number to our office were provided if concerns arise regarding possible complications associated with the procedure are suspected.
== END 2022-06-19 10:26 | disposition home or self-care (01) ==
LOC: RAD 08:55
PROVIDERS: PCP Family Medicine; Referring Provider Physical Medicine & Rehabilitation; Visit Provider Physical Medicine & Rehabilitation
DX: M48.02 Spinal stenosis, cervical region (principal); M50.122 Cervical disc disorder at C5-C6 level with radiculopathy
CPT/HCPCS: 62321; 99152; J0702; J1100; J2250; J3490

== ENCOUNTER 2022-10-02 09:29 | Outpatient (CLI) | payer OTHER, SELFPAY ==
[2022-10-02] VITALS (9 sets, daily range): BP systolic 97–122; BP diastolic 56–78; PULSE 66–81; RESP 12–20; TEMP 36.1; O2SAT 97–100
--- NOTE | 2022-10-02 09:31 | DI.RAD.S_ITS ---
PROCEDURE: PAIN C/T FACET INJ/BLK 1ST L INDICATIONS: SPINAL STENOSIS COMPARISON: [facility], CR, XR CERVICAL SPINE 4V OR 5V, 02/03/2022, 11:12. [facility], XA, PAIN C/T INTERLAMINAR INJECT, 06/19/2022, 9:51. FINDINGS: Fluoroscopic spot filming was performed to verify placement of spinal needles on the left at the C4-C5 and C5-C6 levels, as labeled on the films. Appropriate location of the needle tips was confirmed by injection of iodinated contrast. IMPRESSION: Intraprocedural examination demonstrating appropriate positions of the needles. Dictated by: Loki Alaniz M.D. on 10/02/2022 at 11:06 Approved by: Loki Alaniz M.D. on 10/02/2022 at 11:07
[2022-10-02] MEDS: MIDAZOLAM 2 MG/2 ML VIAL 4 MG IV (10:10)
[2022-10-02] MEDS: IOPAMIDOL 15 ML VIAL 3 ML INJ (10:14)
[2022-10-02] MEDS: DEXAMETHASONE 10 MG/ML VIAL 20 MG INJ (10:14)
[2022-10-02] MEDS: BUPIVACAINE 0.5% (PF) VIAL 2 ML INJ (10:15)
--- NOTE | 2022-10-02 10:27 | P.PCN_ITS ---
Date/Time/Diagnoses Date of procedure: 10/02/22 Time of procedure: 10:27 Pre-procedure diagnosis: 1. FACET ARTHROPATHY 2. AXIAL NECK PAIN Post-procedure diagnosis: same Procedure Notes Procedure: 1. FLUOROSCOPICALLY GUIDED, CONTRAST-CONTROLLED LEFT C4/5, C5/6 FACET JOINT INJECTIONS WITH CONSCIOUS SEDATION. Indications: Maria Ines is referred by Dr. Murphy for treatment of Axial Neck Pain Physician: Gilles Mccray Total Fluoroscopy time (seconds): 10 Total sedation minutes: 14 Complications: none Procedure in detail & Post-procedure care: DESCRIPTION OF PROCEDURE Fluoroscopically guided, contrast-controlled left C4/5, C5/6 facet joint injections with conscious sedation. Following review of allergy and review of potential side effects and complications, including, but not necessarily limited to, infection, allergic reaction, local tissue breakdown, stroke, temporary or permanent nerve injury and paralysis, the patient indicated that the patient understood and agreed to proceed. An informed consent document was signed by the patient, witnessed by a nurse, and placed in the patient's chart. Additionally, other treatment options including medications, modalities, and physical therapy were reviewed with the patient. After review of previous anaesthesic history and IV conscious sedation the patient was deemed safe to proceed with today?s procedure with IV conscious sedation as ASA class II designation. Safety time-out was performed to confirm patient ID, procedure to be performed and site of procedure. IV sedation was accomplished with a combination of 4mg of Versed was administered by the RN after DO order, titrated to patient comfort during the course of the procedure while the patient remained responsive to all verbal commands In the prone position, following sterile prep and drape of the cervical spine region, the posterior aspect of the left C4/5, C5/6 facet joints were identified fluoroscopically. The skin was anesthetized via a 25-gauge 1.5-inch needle with 1% lidocaine solution into the corresponding facet joints. At this point, a 25- gauge 2.5-inch spinal needle was atraumatically introduced and advanced under fluoroscopic guidance into the corresponding facet joints. Following negative aspiration, injections of approximately 0.2-cc of Isovue 200 confirmed interarticular placement without vascular uptake. At this point, a total of 1cc including 0.5 cc or 5mg of dexamethasone combined with 0.5cc of 1% lidocaine solution was injected without complication into each of the corresponding facet joints. The patient tolerated the procedure well without signs or symptoms of complications prior to transfer to the recovery area continued monitoring without incident. The patient was then transferred to the recovery area where they were observed for an appropriate period of time after the injection. The patient reported a VAS score of 7 prior to the procedure and a post- procedure VAS of 0. POST OP INSTRUCTIONS They were provided a Pain Log to continue to record their response to the target-specific procedure prior to their follow-up visit with their referring physician. Additionally, specific post-injection care instructions and a contact number to our office were provided if concerns arise regarding possible complications associated with the procedure are suspected.
--- NOTE | 2022-10-02 10:54 | PC.NURSE ---
Patient's ride will not be here until after 1200. Patient still slightly drowsy, will continue to monitor until she meets discharge criteria. Dr. Shazia molina.
== END 2022-10-02 13:15 | disposition home or self-care (01) ==
LOC: RAD 09:30
PROVIDERS: PCP Family Medicine; Referring Provider Physical Medicine & Rehabilitation; Visit Provider Physical Medicine & Rehabilitation
DX: M47.812 Spondylosis without myelopathy or radiculopathy, cervical region (principal)
CPT/HCPCS: 64490; 99152; J1100; J2250

== ENCOUNTER → 2023-02-06 12:07 | Outpatient (CLI) | payer OTHER, SELFPAY ==
--- NOTE | 2023-02-06 | DI.MRI.S_ITS ---
PROCEDURE: MR CERVICAL SPINE WO CON INDICATIONS: Radiculopathy, cervical region TECHNIQUE: Noncontrast sagittal T1 spin echo and T2 fast spin echo, sagittal STIR, foraminal oblique sagittal T2 fast spin echo, and axial gradient echo or T2 fast spin echo through the cervical spine. COMPARISON: None. FINDINGS: Image quality: This examination is limited by involuntary motion artifact. Alignment and Curvature: There is normal bony alignment. Bone Marrow: Marrow demonstrates normal overall signal. Scattered foci are seen, which are hyperintense on T1-weighted and T2-weighted imaging, which are most consistent with benign vertebral body hemangiomas. Spinal Cord: Visualized spinal cord has normal size and signal. No cerebellar tonsillar herniation. Paraspinous Soft Tissues: No paravertebral masses. Prevertebral soft tissues are normal in thickness. Asymmetry is noted of the submandibular glands, with the left side larger than the right. No masses are seen, however. C2-C3: Normal appearance. C3-C4: The disc height and disk signal are well-preserved. A mild degree of generalized disc osteophyte complex is seen. There is [id number] left-sided and mild right-sided facet hypertrophy. There is [id number] left-sided and no right-sided neural foraminal narrowing. Minimal central canal narrowing is seen. C4-C5: Mild loss of disc height is seen. Loss of disc signal is seen. Moderate disc osteophyte complex is seen, with a central/right disc osteophyte protrusion. Mild to moderate facet hypertrophy can be seen. There is moderate right-sided and [id number]-vm-[id number] left-sided neural foraminal narrowing. Moderate central canal narrowing is seen. There is associated mass effect upon the ventral spinal cord. C5-C6: Minimal loss of disc height and disc signal can be seen. Moderate disc osteophyte complex is seen, with a central/left disc osteophyte protrusion, as on series 3, image 27. Mild facet joint hypertrophy is seen. Mild bilateral neural foraminal narrowing is seen. Moderate central canal narrowing is seen. There is associated mass effect upon the ventral spinal cord. C6-C7: No significant abnormality is seen. C7-T1: Normal appearance. IMPRESSION: Cervical spine degenerative changes are seen, which are worst at C4-C5 and C5-C6. Dictated by: Loki Alaniz M.D. on 02/06/2023 at 12:56 Approved by: Loki Alaniz M.D. on 02/06/2023 at 13:01
== END ==
PROVIDERS: PCP Family Medicine; Referring Provider Physician Assistant Surgical; Visit Provider Physician Assistant Surgical
DX: S16.1XXA Strain of muscle, fascia and tendon at neck level, initial encounter (principal); M47.22 Other spondylosis with radiculopathy, cervical region; M50.121 Cervical disc disorder at C4-C5 level with radiculopathy; X58.XXXA Exposure to other specified factors, initial encounter
CPT/HCPCS: 72141

== ENCOUNTER 2023-09-08 08:21 | Outpatient (CLI) | payer OTHER, SELFPAY ==
[2023-09-08] VITALS (8 sets, daily range): BP systolic 112–124; BP diastolic 60–74; PULSE 65–77; RESP 16–25; TEMP 36.3; O2SAT 98–100
--- NOTE | 2023-09-08 08:35 | PC.NURSE ---
Patient did not hold her Celebrex x3 days, reports that she was never told and was scheduled yesterday for the procedure. notified
--- NOTE | 2023-09-08 08:45 | DI.RAD.S_ITS ---
PROCEDURE: PAIN C/T TRANFORAMINAL INJECT INDICATIONS: SPINAL STENOSIS COMPARISON: MR, MR CERVICAL SPINE WO CON, 02/06/2023, 12:36. [facility], CR, XR CERVICAL SPINE WITH FLEXION EXTENSION, 01/08/2023, 10:09. FINDINGS: Fluoroscopic spot filming was performed to verify placement of spinal needles at the left C5-C6 level(s), as labeled on the films. Appropriate location(s) of the needle tip(s) was confirmed by injection of iodinated contrast. IMPRESSION: Fluoroscopy for pain management. Dictated by: Yoav Pepper M.D. on 09/08/2023 at 10:29 Approved by: Yoav Pepper M.D. on 09/08/2023 at 10:29
[2023-09-08] MEDS: MIDAZOLAM 2 MG/2 ML VIAL IV (09:20)
[2023-09-08] MEDS: iopamidoL 15 ML VIAL 3 ML INJ (09:25)
[2023-09-08] MEDS: BUPIVACAINE 0.25% (PF) VIAL 2 ML INJ (09:25)
[2023-09-08] MEDS: DEXAMETHASONE 10 MG/ML VIAL 20 MG INJ (09:26)
--- NOTE | 2023-09-08 09:45 | PM.PROC.IR.1 ---
Date/Time/Diagnoses Date of procedure: 09/08/23 Time of procedure: 09:45 Pre-procedure diagnosis: 1. FORAMINAL STENOSIS Post-procedure diagnosis: same Procedure Notes Procedure: 1. FLUOROSCOPICALLY GUIDED, CONTRAST-CONTROLLED LEFT C5/6 TRANSFORAMINAL ADVY and SNRB Indications: Maria Ines is referred by Dr. Barrera for treatment of Cervical HNP with left UE symptoms. Physician: Gilles Mccray Total Fluoroscopy time (seconds): 55 Total sedation minutes: 19 Complications: none Procedure in detail & Post-procedure care: DESCRIPTION OF PROCEDURE Fluoroscopically guided, contrast-controlled left C5/6 TFESI and selective nerve root block. Following review of allergy and review of potential side effects and complications, including, but not necessarily limited to, infection, allergic reaction, local tissue breakdown, temporary as well as permanent nerve injury, stroke, paralysis, and possible , the patient indicated that the patient understood and agreed to proceed. An informed consent document was signed by the patient, witnessed by a nurse, and placed in the patient's chart. Additionally, other treatment options including modalities, medications, and physical therapy were reviewed with the patient. After review of previous anaesthesic history and IV conscious sedation the patient was deemed safe to proceed with today?s procedure with IV conscious sedation as ASA class II designation. Safety time-out was performed to confirm patient ID, procedure to be performed and site of procedure. IV sedation was accomplished with a combination of 2mg of Versed administered by the RN after DO order, titrated to patient comfort during the course of the procedure while the patient remained responsive to all verbal commands In the prone position following sterile prep and drape of the cervical region, the left C5/6 posterior neural foramen was identified fluoroscopically. The skin was anesthetized via a 25-gauge 1.5-inch needle with 1% lidocaine solution. At this point, a 25-gauge 2.5-inch short bevel needle was atraumatically introduced and advanced under fluoroscopic guidance to the position of the left C5/6 neural foramen and superior. Radiological data, including multiple fluoroscopic views of the cervical spine, reveal a spinal needle at the left C5/6 posterior neural foramen. Subsequent views show flow of contrast material flowing superiorly and inferiorly along the nerve root confirming selective nerve root block as well as into the epidural space confirming epidural flow. DSA fluoroscopy with live contrast injection, again, confirmed no vascular or intrathecal uptake. At this point, nerve root flow was confirmed following negative aspiration with live injection with DSA of approximately 1.5 cc of Isovue-M 200, showing neural flow without vascular or intrathecal uptake. Subsequently, a test dose of 1.5 cc of .25% Marcaine solution was injected and patient was observed for two minutes without signs or symptoms of complications, including abdominal pain, shortness of breath, bilateral upper or lower extremity weakness, nausea and vomiting. Subsequently, 2cc or 20mg of dexamethasone was injected without incident. The procedure tolerated the procedure well without signs or symptoms of complications prior to transfer to the recovery area continued monitoring without incident. The patient was then transferred to the recovery area where they were observed for an appropriate period of time after the injection. The patient reported a VAS score of 9 prior to the procedure and a post-procedure VAS of 1. POST OP INSTRUCTIONS They were provided a Pain Log to continue to record their response to the target-specific procedure prior to their follow-up visit with their referring physician. Additionally, specific post-injection care instructions and a contact number to our office was provided if concerns arise regarding possible complications associated with the procedure are suspected.
== END 2023-09-08 09:58 | disposition home or self-care (01) ==
LOC: RAD 08:21
PROVIDERS: PCP Family Medicine; Referring Provider Physical Medicine & Rehabilitation; Visit Provider Physical Medicine & Rehabilitation
DX: M48.02 Spinal stenosis, cervical region (principal); M50.122 Cervical disc disorder at C5-C6 level with radiculopathy
CPT/HCPCS: 64479; 99152; J1100; J2250; J3010; J3490

== ENCOUNTER → 2024-03-24 07:38 | Outpatient (CLI) | payer OTHER, SELFPAY ==
--- NOTE | 2024-03-24 | DI.MRI.S_ITS ---
PROCEDURE: MR SHOULDER LT W CON INDICATIONS: ACUTE PAIN IN L SHOULDER/CERVICALGIA TECHNIQUE: After the administration of 12 mL of dilute intra-articular Gadolinium contrast, oblique coronal T1 and T2 spin echo with fat saturation, oblique sagittal T1 spin echo with and without fat saturation, oblique sagittal T2 fast spin echo with fat saturation, axial T1 spin echo with fat saturation through the shoulder. COMPARISON: Merged With [facility], , [place] SHOULDER INJECTION MR/CT LT, 03/24/2024, 7:29. CR, SHOULDER MINIMUM 2 VIEW LEFT, 05/06/2017, 8:29. FINDINGS: Image quality: Excellent. Rotator cuff: There is mild supraspinatus tendinosis. No high-grade tendon tear. The infraspinatus and subscapularis tendons appear intact throughout. No rotator cuff muscle atrophy on sagittal images. Bones and bursae: No bone marrow contusions or fractures. Mild acromioclavicular joint degeneration. There is edema in the distal clavicle and acromion, likely reactive. The acromion demonstrates conventional anatomy, without an os acromiale. Capsule and soft tissues: The labrum and glenohumeral ligaments appear intact. The long head of the biceps tendon demonstrates normal location and morphology. The rotator interval appears normal, without fibrosis. The coracohumeral ligament is of normal thickness. No intra-articular bodies. Mildly enlarged lymph nodes are noted in the left axilla measuring up to 1.5 cm in short axis. IMPRESSION: 1. Mild supraspinatus tendinosis. 2. Mild acromioclavicular arthrosis. 3. Mildly enlarged left axillary lymph nodes are noted, indeterminate but likely reactive. Recommend clinical follow-up. Dictated by: Yoav Pepper M.D. on 03/24/2024 at 16:58 Approved by: Yoav Pepper M.D. on 03/25/2024 at 9:38
--- NOTE | 2024-03-24 07:40 | DI.RAD.S_ITS ---
PROCEDURE: [place] SHOULDER INJECTION MR/CT LT INDICATIONS: ACUTE PAIN IN L SHOULDER/CERVICALGIA COMPARISON: [facility], MR, MR SHOULDER LT W CON, 03/24/2024, 9:09. TECHNIQUE: The indications, alternatives, benefits, risks, and complications of the procedure were explained to the patient. Written informed consent was obtained and placed in the chart. The shoulder was examined fluoroscopically and a site for needle placement chosen for entry into the glenohumeral joint from an anterior approach. The skin was prepped and draped in a sterile fashion, and 1% lidocaine infiltrated from skin down to joint capsule. A spinal needle was inserted into the glenohumeral joint, and a small amount of iodinated contrast media injected to confirm intra-articular placement of the needle tip. This was followed by approximately 12 mL dilute solution of a gadolinium containing MR contrast agent. The needle was removed and a dressing was applied. The patient was given postprocedural instructions and sent to the MR suite for MR imaging. FINDINGS: A single fluoroscopic spot image demonstrates intra-articular location of injected iodinated contrast. IMPRESSION: Successful fluoroscopically guided administration of dilute Gadolinium solution into the shoulder joint for MR arthrogram. Dictated by: Yeison Garner M.D. on 03/24/2024 at 10:20 Approved by: Yeison Garner M.D. on 03/24/2024 at 10:21
--- NOTE | 2024-03-24 07:40 | DI.MRI.S_ITS ---
PROCEDURE: MR CERVICAL SPINE WO CON INDICATIONS: ACUTE PAIN IN L SHOULDER/CERVICALGIA TECHNIQUE: Noncontrast sagittal T1 spin echo and T2 fast spin echo, sagittal STIR, foraminal oblique sagittal T2 fast spin echo, and axial gradient echo or T2 fast spin echo through the cervical spine. COMPARISON: [facility], MR, MR CERVICAL SPINE WO CON, 02/06/2023, 12:36. FINDINGS: Alignment and Curvature: There is normal bony alignment. Bone Marrow: Marrow demonstrates normal overall signal. Spinal Cord: Visualized spinal cord has normal size and signal. No cerebellar tonsillar herniation. Paraspinous Soft Tissues: No paravertebral masses. Prevertebral soft tissues are normal in thickness. C2-C3: Normal appearance. C3-C4: Normal appearance. C4-C5: Disc height is maintained. Asymmetric right disc osteophyte complex results in moderate central stenosis. Moderate right and no left foraminal stenosis C5-C6: Disc height is maintained. Central disc osteophyte complex results in moderate central stenosis with flattening the ventral surface of the cord. No cord edema. No foraminal stenosis. C6-C7: Normal appearance. C7-T1: Normal appearance. IMPRESSION: Multilevel degenerative disc disease and arthropathy results in varying degrees of central and foraminal stenosis including moderate central stenosis C4-5 and C5-6 Approved by: Benji Paul M.D. on 03/24/2024 at 13:16
[2024-03-24] MEDS: LIDOCAINE 1% 20 ML INJ (10:12)
[2024-03-24] MEDS: SODIUM CHLORIDE 0.9 % 20 ML VIAL IV (10:13)
== END ==
PROVIDERS: PCP Family Medicine; Referring Provider Orthopaedic Surgery Orthopaedic Surgery of the Spine; Visit Provider Orthopaedic Surgery Orthopaedic Surgery of the Spine
DX: M50.121 Cervical disc disorder at C4-C5 level with radiculopathy (principal); M48.02 Spinal stenosis, cervical region; M47.26 Other spondylosis with radiculopathy, lumbar region; M19.012 Primary osteoarthritis, left shoulder; M25.512 Pain in left shoulder; R59.0 Localized enlarged lymph nodes
CPT/HCPCS: 23350; 72141; 73040; 73222; A9579; Q9967